=== PATIENT | female | born 1975 | race Two or more races ===

== ENCOUNTER 2018-12-09 09:07 | Inpatient (IN) | payer MEDICAID ==
[~2018-12-09] VITALS: Ht 157.5 cm; Wt 81.2 kg
[2018-12-09 10:45] VITALS: BP 114/69
--- NOTE | 2018-12-09 10:45 | NUR ---
MS INSURANCE CLAIMS ASSISTANT NOTE PATIENT RECEIVED FROM [facility] A DIRECT ADMIT. PATIENT ARRIVED BY GURNEY BUT AMBULATORY TO BED. PATIENT VITAL SIGNS WNL. PATIENT IN NO ACUTE DISTRESS. NO SOB NOTED. PATIENT BREATHING IS EVEN AND UNLABORED. SON IS AT THE BEDSIDE. PATIENT STATES NO PAIN AT THIS TIME UNLESS SHE AGGRESSIVELY AMBULATES. THEN HER ABDOMEN ACHES AT 4/10 PAIN. PATIENT ABLE TO VERBALIZE CONCERNS. CONCERNS AND NEEDS ADDRESSED AT THIS TIME. PATIENT BED IS LOCKED AND IN LOWEST POSITION. CALL LIGHT WITHIN REACH. WILL CONTINUE TO MONITOR. MD AWARE OF PATIENTS ARRIVAL.
[2018-12-09] MEDS ORDERED: ONDA4TAB10 PO (10:59)
[2018-12-09] MEDS ORDERED: NAPR-1192 PO (10:59)
[2018-12-09] MEDS ORDERED: RANI150T8 PO (10:59)
[2018-12-09] MEDS ORDERED: CHOL200059 PO (10:59)
[2018-12-09 11:00] VITALS: BP 114/69
--- NOTE | 2018-12-09 11:50 | NUR ---
MS RN NOTE CONTACTED FLACA NGYUEN AGAIN FOR FOLLOW UP ADMISSION ORDERS. STILL AWAITING ORDERS. PATIENT IN NO ACUTE DISTRESS. WILL CONTINUE TO MONITOR.
[2018-12-09] MEDS ORDERED: Z GUARD REMEDY 2 OZ OINT TP PRN (13:00)
[2018-12-09] MEDS ORDERED: HYDROCODONE/APAP 5/325MG 1 EACH TABLET PO PRN (13:00)
[2018-12-09] MEDS ORDERED: ACETAMINOPHEN 325 MG TABLET PO PRN (13:00)
[2018-12-09] MEDS ORDERED: MAGNESIUM HYDROXIDE 30 ML UDC PO PRN (13:00)
[2018-12-09] MEDS ORDERED: ONDANSETRON HCL/PF 4 MG/2 ML VIAL IVP PRN (13:00)
[2018-12-09] MEDS ORDERED: MAG HYDROX/AL HYDROX/SIMETH 30 ML UDC PO PRN (13:00)
[2018-12-09] MEDS: IV NS 0.9% 1,000 ML IV PRN (13:27)
[2018-12-09] MEDS: CEFTRIAXONE 1 G in IV D5W 50 ML IV SCH (13:55)
[2018-12-09 14:47] LABS: BASOPHILS % (AUTO) 0.1 % (0.0-2.0); EOSINOPHILS % (AUTO) 1.1 % (0.0-6.0); HEMATOCRIT 38 % (33-45); HEMOGLOBIN 12.6 g/dL (11.5-14.8); LYMPHOCYTES # (AUTO) 1.2 /CMM (0.8-4.8); MEAN CORPUSCULAR HGB CONC 34 g/dl (31.0-36.0); MEAN CORPUSCULAR VOLUME 86 fL (82-100); MONOCYTES # (AUTO) 1.2 /CMM (0.1-1.30); MONOCYTES % (AUTO) 8.3 % (2.0-12.0); NEUTROPHILS # (AUTO) 12.2 /CMM (1.8-8.9); NEUTROPHILS % (AUTO) 82.5 % (43.0-81.0); PLATELET COUNT (AUTO) 253 /CMM (150-450); RED BLOOD CELL COUNT(AUTO) 4.36 MIL/uL (4.0-5.2); WHITE BLOOD COUNT (AUTO) 14.8 K/uL (4.3-11.0)
[2018-12-09 15:03] LABS: ALBUMIN 3.2 g/dL (3.4-5.0); BILIRUBIN,TOTAL 1.1 mg/dL (0.2-1.0); CALCIUM, SERUM 8.6 mg/dL (8.5-10.1); CREATININE 0.9 mg/dL (0.6-1.3); POTASSIUM 3.6 mmol/L (3.5-5.1); TOTAL PROTEIN, SERUM 7.3 g/dL (6.4-8.2)
[2018-12-09 16:00] VITALS: BP 110/69
--- NOTE | 2018-12-09 18:30 | NUR ---
MS RN NOTE PATIENT RETURNED FROM HIDA SCAN. ACCORDING TO MABLE FROM [facility], PATIENT IS NOT COMPLETE WITH HIDA SCAN. PATIENT NEEDS TO RETURN AND COMPLETE HIDA SCAN DUE TO GALLBLADDER NOT SHOWING AT THIS TIME, ACCORDING TO MABLE. PATIENT TO COMPLETE HIDA SCAN AT 2130. WILL ENDORSE TO PM SHIFT. CONSENT IS SIGNED AND IN CHART.
[2018-12-09 19:12] LABS: APPEARANCE,URINE CLEAR (CLEAR); BILIRUBIN,URINE 1+ (NEGATIVE); BLOOD, URINE 1+ Ery/uL (NEGATIVE); COLOR,URINE DARK YELLO (YELLOW); KETONES,URINE 3+ (NEGATIVE); LEUKOCYTE ESTERASE ,URINE NEGATIVE (NEGATIVE); NITRITE, URINE NEGATIVE (NEGATIVE); PROTEIN,URINE TRACE mg/dl (NEGATIVE); UGLUCOSE NEGATIVE (NEGATIVE)
--- NOTE | 2018-12-09 19:25 | NUR ---
RN OPEN NOTES RECEIVED PATIENT AWAKE SITTING IN CHAIR. A/OX4. NO SIGNS OF DISTRESS OR DISCOMFORT. BREATHING EVEN AND UNLABORED. PT STATES PAIN IS 4/10 IN RUQ AND TOLERABLE AT THIS TIME. IV ACCESS IN LAC WITH NS INFUSING, PATENT AND INTACT, NO SIGNS OF REDNESS OR INFILTRATION. PT CURRENTLY NPO FOR F/U HIDA SCAN TO BE DONE AT 2130 PER AM SHIFT. BED IN LOW LOCKED POSITION WITH SIDE RAILS X2. CALL LIGHT WITHIN REACH. WILL CONTINUE TO MONITOR.
--- NOTE | 2018-12-09 19:36 | NUR ---
MS RN CLOSING NOTE PATIENT IN ROOM IN CHAIR, RESTING COMFORTABLY. PATIENT IN NO ACUTE DISTRESS. NO SOB NOTED. PATIENT BREATHING IS EVEN AND UNLABORED. PATIENT WAS KEPT CLEAN AND DRY THROUGHOUT SHIFT. PATIENT IV INTACT. ALL NURSING NEEDS MET. ENDORSED TO PM SHIFT THAT PATIENT IS TO BE KEPT NPO AFTER MIDNIGHT FOR MRCP IN THE AM. PATIENT BED IS LOCKED AND IN LOWEST POSITION. CALL LIGHT WITHIN REACH. SAFETY PRECAUTIONS IN PLACE. ENDORSED CARE TO PM SHIFT FOR EARL.
[2018-12-09 19:54] LABS: BACTERIA,URINE Few /HPF (None Seen); SQUAMOUS EPITHELIAL CELL,UR Few /HPF (None Seen); WBC,URINE 0-2 /HPF (0-3)
[2018-12-09 20:00] VITALS: BP 126/73
--- NOTE | 2018-12-09 21:30 | NUR ---
RN NOTES PATIENT PRESENTS WITH SHIVERING AND CHILLS, STATES SHE FEELS VERY COLD. VITAL SIGNS STABLE. TEMP 99.1. PATIENT GIVEN WARM BLANKETS. WILL CONTINUE TO MONITOR.
--- NOTE | 2018-12-09 22:43 | NUR ---
RN NOTES PATIENT WENT DOWN FOR HIDA SCAN
--- NOTE | 2018-12-09 23:01 | NUR ---
RN NOTES PATIENT BACK FROM HIDA SCAN.
[2018-12-09] MEDS: FAMOTIDINE (20 MG) 20 MG TABLET PO SCH (23:12)
--- NOTE | 2018-12-09 23:12 | NUR ---
RN NOTES ADMINISTERED PEPCID 20MG AT THIS TIME DUE TO PATIENT BEING NPO STATUS FOR REPEAT HIDA SCAN. WILL CONTINUE TO MONITOR
[2018-12-10 06:49] LABS: BASOPHILS % (AUTO) 0.3 % (0.0-2.0); EOSINOPHILS % (AUTO) 0.4 % (0.0-6.0); HEMATOCRIT 39 % (33-45); HEMOGLOBIN 12.9 g/dL (11.5-14.8); LYMPHOCYTES # (AUTO) 0.6 /CMM (0.8-4.8); LYMPHOCYTES % (AUTO) 22.7 % (20.0-44.0); MEAN CORPUSCULAR HGB CONC 33 g/dl (31.0-36.0); MEAN CORPUSCULAR VOLUME 88 fL (82-100); MONOCYTES % (AUTO) 1.8 % (2.0-12.0); NEUTROPHILS % (AUTO) 74.8 % (43.0-81.0); PLATELET COUNT (AUTO) 239 /CMM (150-450); RED BLOOD CELL COUNT(AUTO) 4.43 MIL/uL (4.0-5.2); WHITE BLOOD COUNT (AUTO) 2.7 K/uL (4.3-11.0)
[2018-12-10 06:57] LABS: CALCIUM, SERUM 9.2 mg/dL (8.5-10.1); CREATININE 1.2 mg/dL (0.6-1.3); MAGNESIUM 1.6 mg/dL (1.8-2.4); PHOSPHORUS 3.7 mg/dL (2.5-4.9); POTASSIUM 3.7 mmol/L (3.5-5.1)
--- NOTE | 2018-12-10 07:02 | NUR ---
RN CLOSING NOTES PATIENT AWAKE SITTING IN CHAIR. A/OX4. NO SIGNS OF DISTRESS OR DISCOMFORT. BREATHING EVEN AND UNLABORED. DENIES ANY PAIN AT THIS TIME. IV ACCESS IN LAC, PATENT AND INTACT, NO SIGNS OF REDNESS OR INFILTRATION. PT DOES NOT WANT TO BE CONNECTED TO HER IVF'S A THIS TIME, PT STATES SHE BELIEVES THAT IS WHAT'S MAKING HER HAVE CHILLS. PATIENT ADVISED OF RISK AND BENEFITS. BED IN LOW LOCKED POSITION WITH SIDE RAILS X2. CALL LIGHT WITHIN REACH. WILL ENDORSE TO AM SHIFT FOR EARL.
[2018-12-10 07:07] LABS: THYROID STIMULATING HORMONE 1.257 uIU/mL (0.358-3.74)
--- NOTE | 2018-12-10 07:10 | NUR ---
MS RN NOTES PATIENT IN BED ALERT ORIENTED X 4. NO ACUTE DISTRESS NOTED. BREATHING UNLABORED. IV ACCESS PATENT AND INTACT, NO REDNESS OR SWELLING NOTED. SAFETY MEASURES IN PLACE. CALL LIGHT WITHIN REACH. WILL CONTINUE TO MONITOR ACCORDINGLY.
[2018-12-10] MEDS ORDERED: PANTOPRAZOLE 40 MG TABLET.DR PO SCH (07:30)
[2018-12-10 08:03] VITALS: BP 89/52
[2018-12-10 09:35] LABS: ALBUMIN 3.2 g/dL (3.4-5.0); BILIRUBIN,DIRECT 0.5 mg/dL (0.0-0.2); BILIRUBIN,TOTAL 1.4 mg/dL (0.2-1.0); TOTAL PROTEIN, SERUM 7.7 g/dL (6.4-8.2)
[2018-12-10 09:56] LABS: BAND % (MANUAL) 17 % (0.0-5.0); EOSINOPHILS % (MANUAL) 1 % (0-4); LYMPHOCYTES % (MANUAL) 23 % (16-48); MONOCYTES % (MANUAL) 5 % (0-11.0); NEUTROPHILS % (MANUAL) 54 (42-76)
[2018-12-10] MEDS: CHOLECALCIFEROL 1,000 UNIT TABLET (VIT D3) PO SCH (09:59)
[2018-12-10] MEDS: FAMOTIDINE (20 MG) 20 MG TABLET PO SCH ×2 (09:59→21:10)
[2018-12-10] MEDS ORDERED: MAGNESIUM OXIDE 400 MG TABLET PO ONE (10:30)
--- NOTE | 2018-12-10 12:30 | NUR ---
MS RN NOTES MRCP RESULTED, NOTIFIED COSMETICS AND TOILETRIES SALESPERSON FLACA EGAN AND DR GIFTY HUNTER.
--- NOTE | 2018-12-10 12:30 | NUR ---
MS RN NOTES CLARIFIED WITH FLACA EGAN PATIENT TO BE KEPT NPO , CLARIFIED MAGNESIUM OXIDE PO ORDER WITH ORDERS TO CHANGE TO MAGNESIUM 1 GRAM IV. NOTED AND CARRIED OUT.
[2018-12-10] MEDS ORDERED: Magnesium 1GM/D5W 100ML PREMIX PIGGYBACK IV ONE (13:00)
[2018-12-10] MEDS ORDERED: MGSO4/D5W 100 ML IV SCH (13:00)
[2018-12-10] MEDS ORDERED: ANESTHESIA TRAY IN PYXIS 1 EA TRAY MC ONE (13:51)
[2018-12-10] MEDS: CEFTRIAXONE 1 G in IV D5W 50 ML IV SCH (13:55)
--- NOTE | 2018-12-10 14:35 | NUR ---
MS RN NOTES SEEN AND EVALUATED BY DR DALE DURBIN WITH NEW ORDERS MADE NOTED AND CARRIED OUT.
[2018-12-10] MEDS ORDERED: BUPIVACAINE 0.5 % PF 150 MG/30 ML VIAL ONE (14:57)
[2018-12-10] MEDS ORDERED: LIDOCAINE 1%-EPI 1:100,000 20 ML VIAL ONE (14:57)
[2018-12-10] MEDS ORDERED: MIDAZOLAM HCL 2 MG/2ML VIAL ONE (14:58)
[2018-12-10] MEDS ORDERED: FENTANYL PF 250MCG/5ML AMPUL ONE (14:59)
[2018-12-10] MEDS ORDERED: FAMOTIDINE/PF INJ 20 MG/2 ML VIAL IV ONE (14:59)
[2018-12-10] MEDS ORDERED: ROCURONIUM BROMIDE 50 MG/5 ML ONE (15:00)
--- NOTE | 2018-12-10 15:00 | NUR ---
MS CESAR JOVEL TRANSPORTED TO OPERATING ROOM WITH STABLE VITAL SIGNS, IN STABLE CONDITION.
--- NOTE | 2018-12-10 17:00 | NUR ---
ALLOY WEIGHER NOTES PATIENT CAME BACK FROM OPERATING ROOM WITH STABLE VITAL SIGNS. NO ACUTE DISTRESS NOTED. PLACED TELEMETRY SINUS RHYTHM. PATIENT WITH RAZA DRAIN ON RIGHT ABDOMEN WITH 30CC SEROSANGUINEOUS OUTPUT, WITH DRESSING AROUND, CLEAN DRY AND INTACT. SAFETY MEASURES IN PLACE. CALL LIGHT WITH REACH. WILL CONTINUE TO MONITOR ACCORDINGLY.
--- NOTE | 2018-12-10 18:00 | NUR ---
[employer]ACLE FINANCIALS CONSULTANT NOTES PATIENT WITH STABLE VITAL SIGNS, NO ACUTE DISTRESS NOTED, BREATHING UNLABORED. WILL CONTINUE TO MONITOR ACCORDINGLY.
[2018-12-10] MEDS: IV NS 0.9% 1,000 ML IV PRN (18:37)
--- NOTE | 2018-12-10 19:00 | NUR ---
MS RN NOTES PATIENT IN BED ALERT ORIENTED X 4. NO ACUTE DISTRESS NOTED, VITAL SIGNS MONITORED REMAINS STABLE. BREATHING UNLABORED. IV ACCESS PATENT AND INTACT, NO REDNESS OR SWELLING NOTED. RAZA DRAIN ON RIGHT ABDOMEN INTACT WITH DRESSING CLEAN DRY AND INTACT. SAFETY MEASURES IN PLACE. CALL LIGHT WITHIN REACH. WILL ENDORSE TO NIGHT NURSE FOR CONTINUITY OF CARE.
--- NOTE | 2018-12-10 19:15 | NUR ---
TELE REWORKER INITIAL NOTES RECEIVED PT IN BED AWAKE AND ALERT WITH IVF ON NS AT 125ML/HR INFUSING ON HER LEFT AC PATENT AND INTACT, NO REDNESS NOTED. PT HAD RAZA WITH SMALL AMOUNT OF OUTPUT NOTED , NO BLEEDING ON OPERATION SITE OPEN TO AIR. DENIES ANY PAIN OR ANY DISCOMFORT AT THIS TIME. NO SIGNS OF ANY DISTRESS NOTED. SHE ALSO ON TELE SINUS RHYTHM PER MONITOR. KEPT HER WARM AND COMFORTABLE AT ALL TIMES. I ALSO ENCOURAGE HER USE THE CALL LIGHT SYSTEM IF SHE NEEDS SOME HELPED . PLACE CALL LIGHT AT REACH.
[2018-12-10 20:00] VITALS: BP 91/60
[2018-12-10 20:25] VITALS: BP 91/60
[2018-12-10] MEDS: MORPHINE SULFATE INJ 2 MG/ML DISP.SYRIN IV PRN (23:37)
--- NOTE | 2018-12-10 23:37 | NUR ---
tele bait maker notes c/o pain c/o abdominal pain, no n/v noted. Morphine 2 mg IVP given by nurse Jorge/RN lakeisha IVP as ordered. will continue monitoring.
[2018-12-11] VITALS: BP 120/69
--- NOTE | 2018-12-11 01:30 | NUR ---
transformation consultant notes pt resting comfortably in bed without any discomfort noted. ivf still infusing. kept her warm and comfortable at all times. tele SR per monitor.
--- NOTE | 2018-12-11 03:00 | NUR ---
child development director notes pt woke up and states that she feel bloated and started getting pain, i spoke to her maybe your having gas pain because your not moving at all i asked her if she wants to used the restroom that will help her to pass gas. explained to her the importance of ambulating as possible if she can and she understood well. assisted her to the bathroom while Doir Bee changing her beddings. the patient stated she feel much better after she used the restroom , passed gas and urinated well at the same time. RAZA have small amount of output noted. she 's saying she wants to sit in the chair for a while. call light within reach. will continue monitoring.
[2018-12-11 04:00] VITALS: BP 103/74
[2018-12-11 06:49] LABS: HEMATOCRIT 35 % (33-45); HEMOGLOBIN 11.4 g/dL (11.5-14.8); LYMPHOCYTES # (AUTO) 1.3 /CMM (0.8-4.8); MEAN CORPUSCULAR HGB CONC 33 g/dl (31.0-36.0); MEAN CORPUSCULAR VOLUME 87 fL (82-100); MONOCYTES # (AUTO) 0.4 /CMM (0.1-1.30); MONOCYTES % (AUTO) 2.8 % (2.0-12.0); NEUTROPHILS # (AUTO) 12.6 /CMM (1.8-8.9); NEUTROPHILS % (AUTO) 88.2 % (43.0-81.0); PLATELET COUNT (AUTO) 247 /CMM (150-450); RED BLOOD CELL COUNT(AUTO) 4.03 MIL/uL (4.0-5.2); WHITE BLOOD COUNT (AUTO) 14.3 K/uL (4.3-11.0)
[2018-12-11 07:01] LABS: ALBUMIN 2.7 g/dL (3.4-5.0); BILIRUBIN,DIRECT 0.2 mg/dL (0.0-0.2); BILIRUBIN,TOTAL 0.5 mg/dL (0.2-1.0); CALCIUM, SERUM 8.6 mg/dL (8.5-10.1); POTASSIUM 4.2 mmol/L (3.5-5.1); TOTAL PROTEIN, SERUM 7.1 g/dL (6.4-8.2)
[2018-12-11] MEDS: IV NS 0.9% 1,000 ML IV PRN (07:04)
--- NOTE | 2018-12-11 07:17 | NUR ---
tele circuit judge closing notes pt back to sleep after morning care done. DVT pump still on, IVf still infusing. all due meds given and all needs met. stable lakeisha the night . RAZA draining 20ml . kept her warm and comfortable at all times. no signs fo any distress or any discomfort noted at this time. will endorse to am nurse for continuity of care. place call light at reach.
--- NOTE | 2018-12-11 07:56 | NUR ---
RN OPENING NOTES PT RESTING IN BED. PATIENT PRIMARILY MALTESE SPEAKER. NO APPARENT S/S OF PAIN, DISTRESS OR SOB AT THIS TIME. PT S/P LAP YESSENIA 12/10/18. PT HAS LEFT AC #20 INTACT AND PATIENT RUNNING NS @75 ML/HR. SAFETY PRECAUTIONS IN PLACE, BED IN LOWEST LOCKED POSITION, X2 SIDE RAILS UP AND CALL LIGHT WITHIN REACH. WILL CONTINUE TO MONITOR. Addendum: 12/11/18 at 0802 by DOMINICK GOODMAN RN TELE MONITORED NS 62.
[2018-12-11 08:00] VITALS: BP 104/66
[2018-12-11] MEDS: FAMOTIDINE (20 MG) 20 MG TABLET PO SCH ×2 (08:49→21:09)
[2018-12-11] MEDS: CHOLECALCIFEROL 1,000 UNIT TABLET (VIT D3) PO SCH (08:49)
[2018-12-11] MEDS: CEFTRIAXONE 1 G in IV D5W 50 ML IV SCH (12:29)
[2018-12-11 16:00] VITALS: BP 135/84
--- NOTE | 2018-12-11 18:17 | NUR ---
RN OPENING NOTES PT RESTING IN BED. PATIENT PRIMARILY GEORGIAN SPEAKER. NO APPARENT S/S OF PAIN, DISTRESS OR SOB DURING SHIFT. PT S/P LAP YESSENIA 12/10/18. RAZA DRAIN IN PLACE, OUTPUT 25ML. PT HAS LEFT FOREARM #24 INTACT AND PATIENT RUNNING NS @75 ML/HR. SAFETY PRECAUTIONS IN PLACE, BED IN LOWEST LOCKED POSITION, X2 SIDE RAILS UP AND CALL LIGHT WITHIN REACH. WILL ENDORSE TO TELEPHONE SUPERVISOR NURSE FOR CONTINUITY OF CARE. Addendum: 12/11/18 at 1818 by DOMINICK GOODMAN RN RN CLOSING NOTES
--- NOTE | 2018-12-11 19:50 | NUR ---
RN NOTES RECEIVED PATIENT AWAKE LYING IN BED, RESTING COMFORTABLY, NO SIGNS OF ACUTE DISTRESS NOTED, NO FACIAL GRIMACING, DISCOMFORT TOLERABLE VERBALIZED BY PATIENT, BREATHING EVEN AND NON LABORED, CALL LIGHT WITHIN EASY REACH, IV ACCESS ON HER LFA G#24 WITH NS AT 75 ML/HR INFUSING WELL, ALL NEEDS ATTENDED, WILL CONTINUE TO MONITOR ACCORDINGLY.
[2018-12-11 20:00] VITALS: BP 108/63
[2018-12-12 06:24] LABS: CALCIUM, SERUM 8.3 mg/dL (8.5-10.1); CREATININE 0.9 mg/dL (0.6-1.3); POTASSIUM 3.9 mmol/L (3.5-5.1)
--- NOTE | 2018-12-12 06:28 | NUR ---
RN NOTES ALL NEEDS ATTENDED AND MET, ABLE TO REST AND SLEPT AT INTERVALS, ENCOURAGED TO AMBULATE SINCE LAST NIGHT, PATIENT ABLE TO WALK, STAND AND AMBULATES IN THE ROOM AND IN THE HALLWAY, RAZA OUTPUT 25CC PINKISH RED, DENIES ANY PAIN AT THIS TIME, SAFETY MEASURES IN PLACE, CALL LIGHT WITHIN EASY REACH, WILL ENDORSE TO AM NURSE FOR CONTINUITY OF CARE.
[2018-12-12 06:45] LABS: BASOPHILS % (AUTO) 0.1 % (0.0-2.0); HEMATOCRIT 32 % (33-45); LYMPHOCYTES # (AUTO) 1.9 /CMM (0.8-4.8); LYMPHOCYTES % (AUTO) 17.2 % (20.0-44.0); MEAN CORPUSCULAR HGB CONC 34 g/dl (31.0-36.0); MEAN CORPUSCULAR VOLUME 85 fL (82-100); MONOCYTES # (AUTO) 0.7 /CMM (0.1-1.30); MONOCYTES % (AUTO) 6.9 % (2.0-12.0); NEUTROPHILS # (AUTO) 8.2 /CMM (1.8-8.9); NEUTROPHILS % (AUTO) 75.8 % (43.0-81.0); PLATELET COUNT (AUTO) 246 /CMM (150-450); RED BLOOD CELL COUNT(AUTO) 3.79 MIL/uL (4.0-5.2); WHITE BLOOD COUNT (AUTO) 10.9 K/uL (4.3-11.0)
--- NOTE | 2018-12-12 07:39 | NUR ---
RN OPENING NOTES PT RESTING IN BED. PATIENT PRIMARILY ARMENIAN SPEAKER. NO APPARENT S/S OF PAIN, DISTRESS OR SOB AT THIS TIME. PT S/P LAP YESSENIA 12/10/18. PT HAS LEFT AC #20 INTACT AND PATIENT RUNNING NS @75 ML/HR. RAZA DRAIN INTACT. SAFETY PRECAUTIONS IN PLACE, BED IN LOWEST LOCKED POSITION, X2 SIDE RAILS UP AND CALL LIGHT WITHIN REACH. WILL CONTINUE TO MONITOR.
[2018-12-12 08:00] VITALS: BP 120/76
[2018-12-12] MEDS: CHOLECALCIFEROL 1,000 UNIT TABLET (VIT D3) PO SCH (08:56)
[2018-12-12] MEDS: FAMOTIDINE (20 MG) 20 MG TABLET PO SCH (08:56)
[2018-12-12] MEDS: CEFTRIAXONE 1 G in IV D5W 50 ML IV SCH (12:05)
[2018-12-12] MEDS: MORPHINE SULFATE INJ 2 MG/ML DISP.SYRIN IV PRN (12:41)
[2018-12-12] MEDS ORDERED: HYDR-3972 PO (13:31)
--- NOTE | 2018-12-12 14:27 | NUR ---
MARKETING PRODUCTION COORDINATOR NOTES PT STABLE AT DISCHARGE. RAZA DRAIN REMOVED, AND NEW DRESSING SECURED BY AEROSPACE ENGINEER. ALL DISCHARGE PAPERWORK, DISCUSSED, SIGNED, COPIED, AND GIVEN TO THE PATIENT. ID AND IV REMOVED. ALL PATIENT'S BELONGINGS TAKEN WITH PATIENT. PT GIVEN SPECIFIC INFORMATION ABOUT DIET S/P LAP YESSENIA. PT LEFT UNIT VIA WHEELCHAIR AND ACCOMPANIED BY 2 SONS. PT WILL HAVE PRIVATE AUTO TRANSPORT.
== END 2018-12-12 14:15 | disposition home or self-care (01) | DRG 710 ==
LOC: MED 10:24 → TELE 12-10 17:48 → MED 12-11 08:16
PROVIDERS: ADMIT Nurse Practitioner Acute Care; ATTEND Nurse Practitioner Acute Care
PROC: 0FB04ZZ Excision of Liver, Percutaneous Endoscopic Approach (ICD-10-PCS; principal; 2018-12-10)
PROC: 0FT44ZZ Resection of Gallbladder, Percutaneous Endoscopic Approach (ICD-10-PCS; principal; 2018-12-10)
DX: A41.9 Sepsis, unspecified organism (principal); K80.42 Calculus of bile duct with acute cholecystitis without obstruction; K21.9 Gastro-esophageal reflux disease without esophagitis; E83.42 Hypomagnesemia; E80.6 Other disorders of bilirubin metabolism; Z79.899 Other long term (current) drug therapy; E66.9 Obesity, unspecified; Z68.32 Body mass index [BMI] 32.0-32.9, adult; Z98.890 Other specified postprocedural states
CPT/HCPCS: 36415; 74181-TC; 78226; 80048-TC; 80053-TC; 80061-TC; 80076-TC; 81000-TC; 83735-TC; 84100-TC; 84443-TC; 84702-TC; 85025-TC; 87040-TC; 87081-TC; 87086-TC; A9537; G0378; J0690; J0696; J1100; J1885; J2250; J2270; J2405; J2704; J2710; J2765; J3010; J3475; J3490; J7030; J7060